=== PATIENT | male | born 1950 | race Caucasian/White ===

== ENCOUNTER → 2020-03-28 | Outpatient (CLI) | payer MEDICARE, OTHER | LOC: M.MRI 03-27 16:30 | DX: S83.281A Other tear of lateral meniscus, current injury, right knee, initial encounter (principal); S83.241A Other tear of medial meniscus, current injury, right knee, initial encounter; M23.91 Unspecified internal derangement of right knee; M25.461 Effusion, right knee; X58.XXXA Exposure to other specified factors, initial encounter; Y93.89 Activity, other specified; Y92.89 Other specified places as the place of occurrence of the external cause; Y99.8 Other external cause status ==

== ENCOUNTER 2020-04-26 07:16 | Observation (INO) | payer MEDICARE, OTHER ==
[~2020-04-26] VITALS: Ht 167.6 cm; Wt 65.8 kg
[2020-04-26 10:10] VITALS: BP 119/81
[2020-04-26 13:30] VITALS: BP 128/88
[2020-04-26 16:00] VITALS: BP 127/78
--- NOTE | 2020-04-26 17:00 | NUR ---
ASSUMED CARE OF PATIENT AT APPROX 0730. ALERT AND ORIENTED X4. ASSESSMENT COMPLETED AND CHARTED. VSS ON 3 LITERS 02, CONTINUOUS PULSE OX IN PLACE. FLUIDS STARTED AND INFUSING ORDERED. NO COMPLAINTS OF PAIN. FALL PRECAUTIONS IN PLACE. CALL LIGHT WITHIN REACH. HOURLY ROUNDS COMPLETED. WILL CONTINUE WITH PLAN OF CARE.
[2020-04-26 20:00] VITALS: BP 124/73
[2020-04-27] VITALS: BP 118/76
[2020-04-27 03:53] VITALS: BP 113/58
[2020-04-27 04:13] LABS: HEMATOCRIT 35.1 % (42.0-52.0); HEMOGLOBIN 12.5 gm/dL (14.0-18.0)
--- NOTE | 2020-04-27 04:33 | NUR ---
PT A&O, VSS ON 1.5-2.5L. NO C/O PAIN AND DENIED PAIN MED. PT USING URINAL TO VOID. DRESSING TO RT KNEE INTACT. HEMO VAC, POLAR PACK IN PLACE. MEDS, IVF GIVEN ORDERED. HOURLY ROUNDINGS COMPLETED. WILL CONTINUE TO MONITOR.
[2020-04-27 07:50] VITALS: BP 125/65
[2020-04-27] MEDS ORDERED: ACETAMINOPHEN325 MG PO (10:17)
[2020-04-27] MEDS ORDERED: PERCOCET 5-3251 EACH PO (10:18)
[2020-04-27] MEDS ORDERED: METAMUCIL1 EAC1 PO (10:19)
[2020-04-27] MEDS ORDERED: COLACE100 MG PO (10:20)
[2020-04-27] MEDS ORDERED: XARELTO10 M1 PO (10:20)
[2020-04-27 10:21] VITALS: BP 125/65
[2020-04-27 12:00] VITALS: BP 141/63
--- NOTE | 2020-04-27 14:41 | OP ---
[address] [address] OPERATIVE REPORT Name: JACOB RAMIREZ Room: [address] M.R.#: [id number] Admission: 04/26/20 Attend Phys: Himanshu Mccain Discharge: Date of : 48 Report #: [id number] THIS REPORT FOR: //name// cc: Surinder Ibrahim Christopher DO ~ THIS REPORT FOR: //name// CC: Surinder Cordero DATE OF SERVICE: 04/26/2020 PREOPERATIVE DIAGNOSIS: Right knee osteoarthritis. POSTOPERATIVE DIAGNOSIS: Right knee osteoarthritis. PROCEDURE: Right total knee arthroplasty. SURGEON: Wesly Anderson II, DO BLOCK LAYER: ADOLFO [place] ANESTHESIA: General endotracheal. ESTIMATED BLOOD LOSS: 50 mL. ANTIBIOTICS: Ancef preoperatively. DRAINS: Medium Hemovac. COMPLICATIONS: None. CONDITION OF THE PATIENT: Stable to recovery room. IMPLANTS: Listed in operative record and progress note. BRIEF HISTORY: The patient was seen in the preoperative area. Preoperative H and P was performed. Site was marked, questions were answered. Risks and benefits were discussed with the patient in detail about surgery. The patient wished to proceed, assuming all risks. DESCRIPTION OF PROCEDURE: The patient was taken to the operative suite and placed supine on the operating table, given appropriate anesthesia. A well-padded tourniquet applied to upper thigh, which was inflated to 300 mmHg after gravity exsanguination. The operative knee was sterilely prepped and [facility] [address] [place] [address] OPERATIVE REPORT Name: JACOB RAMIREZ Room: [address] M.R.#: [id number] Admission: 04/26/20 Attend Phys: Himanshu Mccain Discharge: Date of : 48 Report #: [id number] draped. Surgery began by midline incision. This was carried down to the subcutaneous tissues. A medial parapatellar arthrotomy was performed and carried down to bone. Patella was then everted and excess soft tissue was removed from around the femur. Femoral cutting block was then applied, checked with a drop porsha for rotational alignment, pinned in appropriate position and appropriate cuts were made. A 4-in-1 cutting block was then applied, checked for rotational alignment, pinned in appropriate position and appropriate cuts were made. The tibia was then exposed. Excess meniscus was removed. Retractor was placed on collateral ligaments. The tibial cutting block was applied, pinned in appropriate position, checked with drop porsha for rotational alignment and slope and appropriate cut was made. The tibial bone was removed. Tibial base plate was then applied, checked for rotational alignment with drop porsha and pinned in appropriate position. The femur was then applied and box cut was reamed. This was then trialed with appropriate spacer, which showed excellent fit and fill and excellent stability of knee through all range of motion. The patella was reamed in appropriate fashion and sized to appropriate size. Three peg holes were drilled and it was then trialed and showed excellent flexion, extension, excellent tracking of the patella within the groove. These trials were then removed. The tibia was punched in appropriate fashion. Bone ends were cleansed with Pulsavac irrigation and cement was mixed and applied to final implants. These were then malleted into position and held the knee in extension and compressed to allow cement to cure. After it cured, excess was removed using a [place] and osteotome. Wound was then copiously irrigated and the final spacer was then malleted into position. Tourniquet was deflated. Hemostasis was obtained with electrocautery. Pain cocktail was injected. PRP gel sprayed throughout internal aspects of the knee. Medium Hemovac drain was applied. Capsule was closed with #2 FiberWire and #1 Vicryl in [id number] fashion. Skin was closed with 2-0 Vicryl and a running 3-0 Monocryl. Dermabond and sterile dressing applied. Geo wrap and PolarCare applied. The patient transported to recovery room in stable condition. Counts were correct throughout the procedure. <ELECTRONICALLY SIGNED> By: Wesly Anderson II, DO 04/27/20 1441 1251 [id number] Anderson II, DO /nt
[2020-04-27] MEDS ORDERED: ASPIRIN EC325 M1 PO (16:22)
--- NOTE | 2020-04-27 16:38 | NUR ---
PT.TO DISCHARGE TODAY. HE LIVES WITH HIS . SPEAKS SOME BURMESE. HE WANTS HOME HEALTH. I TOLD HIM I WOULD CALL HIS SON TO FINALIZE PLANS. HE WAS OK WITH THAT. CALLED SON,RACQUEL. HE SAID PTS WILL BE WITH HIM 09/06. HE CAN HELP NEEDED BUT WORKS. PT.DOES NOT HAVE A WALKER. SON WILL COME TO PICK PT.UP AT 6:00. HE WILL CALL [facility] TO LET THEM KNOW HE IS HERE.CALLED [facility] AND GOT AUTH FOR THERAPY TO [facility]. FAXED ORDER AND FACE SHEET TO [facility]. FAXED ORDERS AND FACE SHEET TO [facility]. CALLED [facility] PRESCRIPTION TO [facility] WRITTEN. COPAY WAS $197. MERCEDES ANTONIO WILL CALL AND DISCUSS WITH SON. [facility] CONFIRMED RECEIVING DISCHARGE ORDERS FOR HOME HEALTH PT. THEY WILL CALL PT.TO SET UP APPTS.
--- NOTE | 2020-04-27 17:16 | NUR ---
ASSUMED CARE OF PT AROUND 0730 THIS AM.REFER TO ASSESSMENT. PT PARTICIPATED WITH PHYSICAL THERAPY AND TOLERATED WELL. ORDERS TO DC HOME. HEMOVAC DC'D. PT DENIES NEEDING PAIN MEDICATION WHEN OFFERED THIS SHIFT. REQUESTED DOSE THIS EVENING AFTER THERAPIES. PT TOLERATING DIET. GIVEN DISCHARGE INSTRUCTIONS AND VERBALIZES UNDERSTANDING. DISCHARGE INSTRUCTIONS DISCUSSED WITH PT'S SON WELL WHO SPEAKS FLUENT CITIZEN OF [place] AND PT'S SON VERBALIZES UNDERSTANDING. XARELTO SUBSTITUTED WITH [facility] 325MG D/T $197.87 COPAY WITH PT'S INSURANCE. CASE MANAGEMENT SET UP HOME HEALTH AND W/C FOR PT AT HOME. NO OTHER CONCERNS AT THIS TIME. AWAITING TRANSPORTATION. CLWR. WCTM.
== END 2020-04-27 18:15 | disposition home health service (06) ==
LOC: M.PRE 07:16 → M.TBA 09:22 → M.ORTHSURG 09:22 → M.PRE 10:08 → M.ORTHSURG 13:29
PROVIDERS: Orthopaedic Surgery; ADMIT Internal Medicine; ATTEND Internal Medicine
DX: Z03.818 Encounter for observation for suspected exposure to other biological agents ruled out (principal); M17.11 Unilateral primary osteoarthritis, right knee

== ENCOUNTER → 2020-07-31 | Outpatient (CLI) | payer MEDICARE, OTHER ==
[~2020-07-31] MED LIST: ACETAMINOPHEN325 MG PO; ASPIRIN EC325 M1 PO; COLACE100 MG PO; METAMUCIL1 EAC1 PO; PERCOCET 5-3251 EACH PO; XARELTO10 M1 PO
== END ==
LOC: M.MRI 11:14
PROVIDERS: ATTEND Orthopaedic Surgery
DX: S83.242A Other tear of medial meniscus, current injury, left knee, initial encounter (principal); M17.11 Unilateral primary osteoarthritis, right knee; M25.461 Effusion, right knee; S83.281A Other tear of lateral meniscus, current injury, right knee, initial encounter; X58.XXXA Exposure to other specified factors, initial encounter; Y93.89 Activity, other specified; Y92.89 Other specified places as the place of occurrence of the external cause; Y99.8 Other external cause status

== ENCOUNTER → 2020-08-15 | Outpatient (CLI) | payer MEDICARE, OTHER ==
[~2020-08-15] MED LIST changes: +OXYCODONE-ACET1 EACH PO; +XARELTO10 MG PO
[2020-08-15 11:55] LABS: HEMATOCRIT 40.1 % (42.0-52.0); HEMOGLOBIN 14.3 gm/dL (14.0-18.0); MCH 32.2 pg (26.0-34.0); MCHC 35.8 g/dL (28.0-37.0); MCV 89.9 fL (80.0-100.0); RBC 4.46 mil/uL (4.50-6.00); RDW-CV 14.8 % (10.5-14.5); WBC 2.8 thou/uL (4.0-11.0)
[2020-08-15 12:14] LABS: ALBUMIN 3.7 g/dL (3.4-5.0); CALCIUM 8.4 mg/dL (8.5-10.1); POTASSIUM 3.6 mmol/L (3.5-5.1); TOTAL BILIRUBIN 0.8 mg/dL (<0.1-1.0); TOTAL PROTEIN 7.2 g/dL (6.4-8.2)
[2020-08-15 12:28] LABS: URINE BILIRUBIN NEGATIVE (Negative); URINE BLOOD NEGATIVE (Negative); URINE CLARITY CLEAR; URINE COLOR YELLOW; URINE GLUCOSE-RANDOM NEGATIVE (Negative); URINE KETONES NEGATIVE (Negative); URINE LEUKOCYTES-REFLEX NEGATIVE (Negative); URINE NITRITE-REFLEX NEGATIVE (Negative); URINE PROTEIN NEGATIVE (Negative); URINE SPECIFIC GRAVITY 1.025 (1.005-1.030); URINE UROBILINOGEN 0.2 E.U./dl (0.2-1.0)
[2020-08-15 13:04] LABS: PROTIME 10.2 Seconds (9.20-11.50)
--- NOTE | 2020-08-15 15:31 | EKG ---
[place] [address] ELECTROCARDIOGRAM REPORT Name: ASHLEYJACOB Room: [facility]#: [id number] Admission: 08/15/20 Attend Phys: Wesly Anderson, Discharge: Date of : 48 Date of Service: 08/15/20 1209 Report #: [id number] THIS REPORT FOR: //name// [facility] Test Date: 2020-08-15 Test Time: 12:09:37 Pat Name: JACOB RAMIREZ Department: Room: Gender: [employer] Distributor: : [id number] Requested By: Wesly Anderson Order Number: [id number] Darling MD: Cash Hollins Measurements Intervals [place] Rate: 67 P: 12 SD: 154 QRS: 47 QRSD: 110 T: 34 QT: 402 QTc: 425 Interpretive Statements Sinus rhythm Compared to ECG 04/13/2020 09:43:23 T-wave abnormality no longer present Electronically Signed On 08-15-2020 15:31:27 CDT by Cash Hollins [email or web address] <ELECTRONICALLY SIGNED> By: Cash Hollins MD, [facility] 08/15/20 1531 1209 120 Cash Hollins MD, [facility] /EPI
== END ==
LOC: M.LAB 09:28
PROVIDERS: ATTEND Orthopaedic Surgery
DX: Z01.818 Encounter for other preprocedural examination (principal); Z20.828 Contact with and (suspected) exposure to other viral communicable diseases; R94.31 Abnormal electrocardiogram [ECG] [EKG]; M17.12 Unilateral primary osteoarthritis, left knee

== ENCOUNTER 2020-08-22 09:28 | Inpatient (IN) | payer MEDICARE, OTHER ==
[~2020-08-22] VITALS: Ht 167.6 cm; Wt 65.8 kg
[~2020-08-22 09:28] MED LIST changes: -XARELTO10 MG PO
[2020-09-12 09:40] VITALS: BP 115/77
[2020-09-12 15:30] VITALS: BP 132/72
--- NOTE | 2020-09-12 18:36 | NUR ---
PT CAME FROM SURG LATE THIS PM WITH ELECTRIC DEICER INSPECTOR WHO LEFT SHORTLY AFTER ARRIVAL, ELECTRIC DEICER INSPECTOR STATES PT KNOWS SUFFICIENT [facility] TO COMMUNICATE WITH NURSING STAFF. PT HAS BEEN QUIET ANSWERING YES/NO QUESTIONS. POLAR CARE IN PLACE WITH HEMOVAC TO LT KNEE. IVF INFUISNG PER ORDER. PCT HELPED PT UP TO USE URINAL AND STATES PT IS FEELING NAUSEATED. I ADMINISTERED ZOFRAN AND MORPHINE FOR NAUSEA/PAIN, POLAR CARE ICE REFRESHED AND PT STATES HE IS COMFORTABLE AND DOES NOT NEED ANY FURTHER ASSISTANCE.
[2020-09-12 20:24] VITALS: BP 128/73
[2020-09-12 23:57] VITALS: BP 120/68
[2020-09-13 03:20] VITALS: BP 112/72
[2020-09-13 04:14] LABS: HEMATOCRIT 33.7 % (42.0-52.0); HEMOGLOBIN 11.7 gm/dL (14.0-18.0)
--- NOTE | 2020-09-13 05:29 | NUR ---
GOOD URINE OUTPUT, USES URINAL AT BEDSIDE. PT DID NOT REPORT ANY NEED FOR PAIN MEDICATION ALL SHIFT AND REPORTED NO NAUSEA OR WORSENING OF PAIN. HE IS ALERT AND ORIENTED. RECEIVED ALL MEDS AND FLUIDS SCHEDULED.
--- NOTE | 2020-09-13 06:01 | OP ---
[address] [address] OPERATIVE REPORT Name: RAMIREZJACOB Room: [address] [place] M.R.#: [id number] Admission: 09/12/20 Attend Phys: Himanshu Mccain Discharge: Date of : 48 Report #: [id number] THIS REPORT FOR: //name// cc: Surinder Ibrahim Christopher DO ~ CC: Surinder Cordero DATE OF SERVICE: 09/12/2020 PREOPERATIVE DIAGNOSIS: Left knee osteoarthritis. POSTOPERATIVE DIAGNOSIS: Left knee osteoarthritis. PROCEDURE: Left total knee arthroplasty. SURGEON: Wesly Anderson II, DO IMPORT COORDINATOR: ADOLFO [place] ANESTHESIA: General endotracheal. ESTIMATED BLOOD LOSS: 50 mL. ANTIBIOTICS: Ancef preoperatively. DRAINS: Medium Hemovac. COMPLICATIONS: None. CONDITION OF THE PATIENT: Stable to recovery room. IMPLANTS: Listed in operative record and progress note. BRIEF HISTORY: The patient was seen in the preoperative area. Preoperative H and P was performed. Site was marked, questions were answered. Risks and benefits were discussed with the patient in detail about surgery. The patient wished to proceed assuming all risks. DESCRIPTION OF PROCEDURE: The patient was taken to the operative suite, placed supine on the operating table, given appropriate anesthesia. A well-padded tourniquet was applied to the upper thigh, which was inflated to 300 mmHg after gravity exsanguination. The operative knee was sterilely prepped and draped. Surgery began by midline incision. This was carried down to the subcutaneous tissues. A medial parapatellar arthrotomy was performed and carried down to [address] [address] OPERATIVE REPORT Name: RAMIREZJACOB Room: [address] [place] .R.#: [id number] Admission: 09/12/20 Attend Phys: Himanshu Mccain Discharge: Date of : 48 Report #: [id number] bone. Patella was then everted and excess soft tissue was removed from around the femur. Femoral cutting block was then applied, checked with drop porsha for rotational alignment, pinned in appropriate position and appropriate cuts were made. A 4-in-1 cutting block was then applied, checked for rotational alignment, pinned in appropriate position and appropriate cuts were made. The tibia was then exposed. Excess meniscus was removed. Retractor was placed on collateral ligaments. The tibial cutting block was applied, pinned in appropriate position, checked with a drop porsha for rotational alignment and slope and appropriate cut was made. Tibial bone was removed. Tibial base plate was then applied, checked for rotational alignment with drop porsha and pinned in appropriate position. The femur was then applied and box cut was reamed. This was then trialed with appropriate spacer, which showed excellent fit and fill and excellent stability of the knee through all range of motion. The patella was reamed in appropriate fashion and sized to appropriate size. Three peg holes were drilled and it was then trialed and showed excellent flexion, extension, excellent tracking of the patella within the groove. These trials were removed. The tibia was punched in appropriate fashion. Bone ends were cleansed with Pulsavac irrigation and cement was applied to final implants. These were then malleted into position and held the knee in extension and compressed to allow cement to cure. After it cured, excess was removed using a [place] and osteotome. The wound was then copiously irrigated. The final spacer was malleted into position. Tourniquet was deflated. Hemostasis was maintained with electrocautery. Pain cocktail was injected. PRP gel was sprayed throughout the internal aspects of the knee. Medium Hemovac drain was applied. Capsule was closed with 2 FiberWire and 1 Vicryl in [id number] fashion. Skin was closed with 2-0 Vicryl and running 3-0 Monocryl. Dermabond and sterile dressing applied. Geo wrap and PolarCare applied. The patient was transported to the recovery room in stable condition. Counts were correct throughout the procedure. <ELECTRONICALLY SIGNED> By: Wesly Anderson II, DO 09/13/20 0601 01 [id number] Anderson II, DO /nt
[2020-09-13 07:30] VITALS: BP 115/66
--- NOTE | 2020-09-13 09:39 | NUR ---
RECIEVED O.T. ORDER. WILL DEFER P.T. AT THIS TIME. PLEASE ORDER FURTHER O.T. SERVICES IF NEEDED.
--- NOTE | 2020-09-13 10:15 | NUR ---
THIS NURSE AGREES WITH CHARTING FROM [facility]
[2020-09-13] MEDS ORDERED: XARELTO10 MG PO (10:50)
[2020-09-13 11:00] VITALS: BP 115/66
[2020-09-13 12:00] VITALS: BP 105/53
[2020-09-13 12:19] VITALS: BP 115/66
[2020-09-13 12:22] VITALS: BP 115/66
--- NOTE | 2020-09-13 12:30 | NUR ---
PT.READY FOR DISCHARGE. HAS ORDERS AND THERAPY RELEASED HIM. SPOKE WTH HIM. HE IS DRESSED AND ATE LUNCH. COPAY FOR XARELTO CALLED INTO PHARMACY WAS $197. NURSE WILL OBTAIN ALTERNATE ORDER FOR XARELTO FROM . PT.WANTS TO USE SAME HOME HEALTH HE DID LAST TIME. IT WAS [facility]. FAXED REFERRAL AND DISCHARGE SUMMARY TO THEM [phone]. [facility] CONFIRMED RECEIVING ORDERS. PT.HAS A WALKER. HE LIVES WITH ,SON AND OTHER FAMILY. SON WILL PICK PT.UP.
--- NOTE | 2020-09-13 14:20 | NUR ---
PT GIVEN DISCHARGE INFORMATION, CARE NOTES, AND PRESCRIPTIONS. IV REMOVED. PT BELONGINGS GATHERED. PT LEFT VIA WHEELCHAIR WITH NURSING STAFF TO HOME WITH HOME HEALTH.
--- NOTE | 2020-09-13 17:43 | NUR ---
LEVEL OF LONG TERM WITH HOME HEALTH
== END 2020-09-13 14:21 | disposition home health service (06) | DRG 470 ==
LOC: M.PRE → M.TBA 09-12 08:43 → M.ORTHSURG 09-12 08:43
PROVIDERS: Orthopaedic Surgery; ADMIT Internal Medicine; ATTEND Internal Medicine
PROC: 3E0T3BZ Introduction of Anesthetic Agent into Peripheral Nerves and Plexi, Percutaneous Approach (ICD-10-PCS; principal; 2020-09-12)
PROC: 0SRD0J9 Replacement of Left Knee Joint with Synthetic Substitute, Cemented, Open Approach (ICD-10-PCS; principal; 2020-09-12)
DX: M17.12 Unilateral primary osteoarthritis, left knee (principal); G62.9 Polyneuropathy, unspecified; Z96.651 Presence of right artificial knee joint; Z79.899 Other long term (current) drug therapy

== ENCOUNTER → 2020-09-07 | Outpatient (CLI) | payer MEDICARE, OTHER | LOC: M.LAB 08:52 | PROVIDERS: ATTEND Orthopaedic Surgery | DX: Z01.812 Encounter for preprocedural laboratory examination (principal); Z20.828 Contact with and (suspected) exposure to other viral communicable diseases; M17.11 Unilateral primary osteoarthritis, right knee ==